=== PATIENT | female | born 1995 | race Caucasian/White ===

== ENCOUNTER 2020-07-15 07:55 | Emergency (ER) | payer SELFPAY ==
[~2020-07-15] VITALS: Ht 157.5 cm; Wt 63.5 kg
--- NOTE | 2020-07-15 08:09 | NUR ---
at bedside for assessment
[2020-07-15] MEDS ORDERED: AZIT500T2 PO (10:26)
[2020-07-15] MEDS ORDERED: AZITHROMYCIN 250 MG TABLET PO ONE (10:30)
[2020-07-15] MEDS ORDERED: predniSONE 50 MG TABLET PO ONE (10:30)
--- NOTE | 2020-07-15 10:30 | NUR ---
Patient discharged to home in stable condition. No signs of acute distress noted, noted ambualting with steady gait. Written and verbal after care instructions given. Patient verbalizes understanding of instructions. Stressed follow up or return to ER for worsening s/s.
[2020-07-15 10:31] VITALS: BP 118/73
[2020-07-15] MEDS ORDERED: predniSONE 50 MG TABLET ONE (10:31)
[2020-07-15] MEDS ORDERED: AZITHROMYCIN 250 MG TABLET ONE (10:32)
== END 2020-07-15 10:30 | disposition home or self-care (01) ==
LOC: ER 07:55
DX: I88.9 Nonspecific lymphadenitis, unspecified (principal)
CPT/HCPCS: 86403; 87070; 87400; 99283; J7512; A4663; Q0144